=== PATIENT | male | born 1940 | race Caucasian/White ===

== ENCOUNTER 2024-08-05 14:26 | Emergency (ER) | payer BC, MEDICARE ==
[2024-08-05 14:57] LABS: BASOPHILS ABSOLUTE AUTO 0.02 K/uL (0.00-0.20); BASOPHILS PERCENT AUTO 0.1 % (0.0-2.0); HEMATOCRIT 34.8 % (39.0-49.0); HEMOGLOBIN 11.9 g/dL (13.1-16.8); IMMATURE GRAN ABSOLUTE AUTO 0.03 10^3/uL (0.00-0.04); IMMATURE GRAN PERCENT AUTO 0.2 % (0.0-0.4); LYMPHOCYTES ABSOLUTE AUTO 0.56 K/uL (0.50-3.50); LYMPHOCYTES PERCENT AUTO 3.4 % (10.0-50.0); MEAN CORPUSCULAR HEMOGLOBIN 27.5 pg (28.2-33.3); MEAN CORPUSCULAR HGB CONC 34.2 g/dL (31.7-36.0); MEAN CORPUSCULAR VOLUME 80.6 fL (84.0-98.0); MONOCYTES ABSOLUTE AUTO 0.94 K/uL (0.00-1.00); MONOCYTES PERCENT AUTO 5.7 % (2.0-14.0); NEUTROPHILS ABSOLUTE AUTO 14.84 K/uL (1.40-7.00); NEUTROPHILS PERCENT AUTO 90.6 % (45.0-80.0); PLATELET COUNT,PLT 302 K/uL (150-350); RED BLOOD CELL COUNT 4.32 M/uL (4.33-5.41); RED CELL DISTRIBUTION WIDTH 13.1 % (11.2-14.1); WHITE BLOOD CELL COUNT,WBC 16.4 K/uL (4.0-10.2)
[2024-08-05 15:11] LABS: INR 1.2 (0.9-1.1); PROTHROMBIN TIME 11.5 SEC (9.0-11.1)
[2024-08-05 15:22] LABS: ALBUMIN 2.2 g/dL (3.4-5.0); ANION GAP 15.2 meq/L (7-15); BILIRUBIN TOTAL 0.5 mg/dL (0.2-1.0); CALCIUM 8.6 mg/dL (8.5-10.1); CARBON DIOXIDE,CO2 26.7 mmol/L (21.0-32.0); CREATININE 0.98 mg/dL (0.51-1.17); EST CRCL DRUG DOSING (CG) 45.97 mL/min; MAGNESIUM 1.3 mg/dL (1.8-2.4); POTASSIUM,K 3.9 mmol/L (3.5-5.1); PROTEIN TOTAL,TP 6.8 g/dL (6.4-8.2)
[2024-08-05] MEDS: Diltiazem 25 MG/5 ML SDV IVPUSH ONE (15:24)
[2024-08-05] MEDS: Sodium Chloride 0.9% 10 ML Syringe FLUSH PRN (15:29)
[2024-08-05] MEDS: Enoxaparin 40 MG/0.4 ML Syringe SUBCUT ONE (16:03)
[2024-08-05] MEDS: Iopamidol 612 MG/ML 100 ML Bottle IVPUSH ONE (16:12)
== END 2024-08-05 17:29 ==
LOC: LL.ED 14:26
DX: I48.20 Chronic atrial fibrillation, unspecified (principal); Z87.891 Personal history of nicotine dependence
CPT/HCPCS: 36415; 70460; 71046; 71275; 80053; 82140; 83605; 83735; 83880; 84484; 85025; 85610; 87040; 93005; 93010; 96372; 96374; 99284; 99285-25; J1650; J3490; Q9967

== ENCOUNTER 2024-08-18 05:16 | Emergency (ER) | payer BC, MEDICARE, OTHER ==
[2024-08-18] MEDS: Diltiazem 25 MG/5 ML SDV IVPUSH ONE ×2 (05:36→06:56)
[2024-08-18] MEDS: Sodium Chloride 0.9% 10 ML Syringe FLUSH PRN (05:40)
[2024-08-18] MEDS: Sodium Chloride 0.9% 1,000 ML IV ONE ×2 (06:05→08:15)
[2024-08-18 06:09] LABS: BASOPHILS ABSOLUTE AUTO 0.01 K/uL (0.00-0.20); BASOPHILS PERCENT AUTO 0.1 % (0.0-2.0); EOSINOPHILS ABSOLUTE AUTO 0.01 K/uL (0.00-0.50); EOSINOPHILS PERCENT AUTO 0.1 % (0.0-5.0); HEMATOCRIT 33.7 % (39.0-49.0); HEMOGLOBIN 10.7 g/dL (13.1-16.8); IMMATURE GRAN ABSOLUTE AUTO 0.04 10^3/uL (0.00-0.04); IMMATURE GRAN PERCENT AUTO 0.3 % (0.0-0.4); LYMPHOCYTES ABSOLUTE AUTO 0.97 K/uL (0.50-3.50); LYMPHOCYTES PERCENT AUTO 7.5 % (10.0-50.0); MEAN CORPUSCULAR HEMOGLOBIN 27.1 pg (28.2-33.3); MEAN CORPUSCULAR HGB CONC 31.8 g/dL (31.7-36.0); MEAN CORPUSCULAR VOLUME 85.3 fL (84.0-98.0); MONOCYTES ABSOLUTE AUTO 0.71 K/uL (0.00-1.00); MONOCYTES PERCENT AUTO 5.5 % (2.0-14.0); NEUTROPHILS ABSOLUTE AUTO 11.18 K/uL (1.40-7.00); NEUTROPHILS PERCENT AUTO 86.5 % (45.0-80.0); PLATELET COUNT,PLT 370 K/uL (150-350); RED BLOOD CELL COUNT 3.95 M/uL (4.33-5.41); RED CELL DISTRIBUTION WIDTH 14.4 % (11.2-14.1); WHITE BLOOD CELL COUNT,WBC 12.9 K/uL (4.0-10.2)
[2024-08-18] MEDS: methylPREDNISolone Sodium Succinate 125 MG/2 ML SDV IVPUSH ONE (06:13)
[2024-08-18] MEDS: Furosemide 40 MG/4 ML VIAL IVPUSH ONE (06:13)
[2024-08-18] MEDS: Albuterol/Ipratropium 3.0-0.5 MG/3 ML Neb Soln NEB ONE ×2 (06:13→08:18)
[2024-08-18] MEDS: Piperacillin/Tazobactam 4.5 GM in Sodium Chloride 0.9% 100 ML IV ONE (06:17)
[2024-08-18 06:20] LABS: HCO3 VENOUS,POC 46 mmol/L (23-28); O2 SATURATION VENOUS,POC 98 %; PH VENOUS,POC 7.62 (7.31-7.41); PO2 VENOUS,POC 92 mmHg
[2024-08-18] MEDS: VANCOmycin 1.5 GM/300 ML 1.5 GM in Premix Bag 1 BAG IV ONE (06:23)
[2024-08-18 06:26] LABS: ALBUMIN 2.1 g/dL (3.4-5.0); BILIRUBIN TOTAL 0.5 mg/dL (0.2-1.0); CALCIUM 8.8 mg/dL (8.5-10.1); CREATININE 1.02 mg/dL (0.51-1.17); EST CRCL DRUG DOSING (CG) 44.16 mL/min; MAGNESIUM 1.9 mg/dL (1.8-2.4); PROTEIN TOTAL,TP 6.9 g/dL (6.4-8.2)
[2024-08-18 06:30] LABS: PCO2 VENOUS,POC 45 mmHg (41-51)
[2024-08-18 06:35] LABS: ANION GAP 0.8 meq/L (7-15)
[2024-08-18 06:36] LABS: POTASSIUM,K 2.8 mmol/L (3.5-5.1)
[2024-08-18] MEDS: Potassium Bicarbonate/Cit Ac 20 MEQ Effervescent Tab PO ONE ×3 (06:40→08:37)
[2024-08-18] MEDS ORDERED: Diltiazem 125 MG in Sodium Chloride 0.9% 100 ML IV SCH (06:45)
[2024-08-18 07:16] LABS: INR 1.2 (0.9-1.1); PROTHROMBIN TIME 12.2 SEC (9.0-11.1)
[2024-08-18 07:22] LABS: APPEARANCE,URINE CLEAR; BILIRUBIN,URINE NEGATIVE (NEGATIVE); COLOR,URINE YELLOW; GLUCOSE,URINE NEGATIVE (NEGATIVE); KETONES,URINE NEGATIVE (NEGATIVE); LEUKOCYTE ESTERASE,URINE NEGATIVE (NEGATIVE); NITRITE,URINE NEGATIVE (NEGATIVE); OCCULT BLOOD,URINE NEGATIVE (NEGATIVE); PH,URINE 7.5 (5.0-9.0); PROTEIN,URINE 30 mg/dL (NEGATIVE)
[2024-08-18 07:28] LABS: RBC,URINE 0-5 /HPF; WBC,URINE 0-5 /HPF
[2024-08-18 08:06] VITALS: BP 147/88; PULSE 88
== END 2024-08-18 09:02 ==
LOC: LL.ED 05:16
DX: J96.01 Acute respiratory failure with hypoxia (principal); J96.02 Acute respiratory failure with hypercapnia; J18.9 Pneumonia, unspecified organism; E87.6 Hypokalemia; I48.91 Unspecified atrial fibrillation; I11.0 Hypertensive heart disease with heart failure; I50.9 Heart failure, unspecified; Z90.49 Acquired absence of other specified parts of digestive tract; Z87.891 Personal history of nicotine dependence; Z91.041 Radiographic dye allergy status; Z79.01 Long term (current) use of anticoagulants; Z79.899 Other long term (current) drug therapy
CPT/HCPCS: 36415; 71045; 71250; 80053; 81001; 82803; 83605; 83735; 83880; 84484; 85025; 85379; 85610; 86140; 87040; 93005; 94640; 94761; 96365; 96367; 96375; 96376; 99285-25; A9270-GY; J1938; J2543; J2919; J3372; J3490; J7030